=== PATIENT | male | born 1980 | race African-American/Black ===

== ENCOUNTER 2023-08-15 09:43 | Inpatient (IN) | payer OTHER ==
[2023-08-15 10:31] VITALS: BMI 34.4
[2023-08-15] MEDS ORDERED: AMMONIUM LACTATE 12% LOTION 225 GM BOTTLE TP PRN (15:40)
[2023-08-15] MEDS ORDERED: P-EPHED 60MG/TRIPROLIDI 2.5MG TABLET PO PRN (15:40)
[2023-08-15] MEDS ORDERED: BENZOCAINE/MENTHOL (CHLORASEPTIC ) LOZENGE MM PRN (15:40)
[2023-08-15] MEDS ORDERED: LOPERAMIDE HCL 2 MG CAPSULE PO PRN (15:40)
[2023-08-15] MEDS ORDERED: ACETAMINOPHEN 325 MG TABLET (FP) PO PRN (15:40)
[2023-08-15] MEDS ORDERED: COLLOIDAL OATMEAL 1 BAR EACH TP PRN (15:40)
[2023-08-15] MEDS ORDERED: BENZONATATE 200 MG CAPSULE PO PRN (15:40)
[2023-08-15] MEDS ORDERED: POLYETHYLENE GLYCOL (HEALTHYLAX) 3350 17 GM PACKET PO PRN (15:40)
[2023-08-15] MEDS ORDERED: guaiFENesin 600 MG TABLET.ER (FP) PO PRN (15:40)
[2023-08-15] MEDS ORDERED: MAGNESIUM HYDROX 2400MG/30ML ORAL SUSPENSION 30 ML CUP PO PRN (15:40)
[2023-08-15] MEDS ORDERED: MAG HYDROX/AL HYDROX/SIMETH 30 ML UNIT-DOSE CUP PO PRN (15:40)
[2023-08-15] MEDS ORDERED: NICOTINE POLACRILEX 2 MG GUM BUC PRN (15:42)
[2023-08-15] MEDS: MELATONIN 5 MG TABLETS PO SCH (21:31)
[2023-08-15] MEDS: THIAMINE HCL 100 MG TABLET (FP) PO SCH (21:31)
[2023-08-16 09:37] LABS: HEMATOCRIT 41.6 % (35.4-49); HEMOGLOBIN 13.5 GM/dL (11.7-16.9); MCH 27.6 pg (25.7-33.7); MCHC 32.5 g/dl (32.0-35.9); MEAN CELL VOLUME 84.7 fl (80-96); MEAN PLT VOLUME 10.5 fl (7.5-11.1); PLATELET COUNT 241 10^3/uL (134-434); RBC 4.91 M/mm3 (4.00-5.60); RDW 13.1 % (11.9-15.9); WHITE BLOOD COUNT 5.3 K/mm3 (4.0-10.0)
[2023-08-16 09:46] LABS: POTASSIUM 3.6 mmol/L (3.5-5.1)
[2023-08-16 09:52] LABS: ALBUMIN 3.4 g/dl (3.4-5.0); BLOOD UREA NITROGEN 5.7 mg/dL (7-18)
[2023-08-16 09:53] LABS: CALCIUM 8.4 mg/dL (8.5-10.1)
[2023-08-16 09:55] LABS: CREATININE 0.9 mg/dL (0.55-1.3)
[2023-08-16 09:56] LABS: BILIRUBIN,TOTAL 0.3 mg/dL (0.2-1); TOT PROT 6.7 g/dl (6.4-8.2)
[2023-08-16] MEDS: IBUPROFEN 600 MG TABLET (FP) PO PRN ×2 (10:15→15:33)
[2023-08-16] MEDS: PRENATAL VITAMINS W/ FOLIC ACID TABLET (FP) PO SCH (10:16)
[2023-08-16 11:51] LABS: EPI CELLS 13 /uL (0-25.1); HYALINE CASTS 0 /uL (0-3.1); PH,URINE 7.5 (5.0-8.0); URINE APPEARANCE CLEAR; URINE BACTERIA 441 /uL (0-1359); URINE BILIRUBIN NEGATIVE (NEGATIVE); URINE COLOR YELLOW; URINE GLUCOSE (UA) NEGATIVE (NEGATIVE); URINE KETONE NEGATIVE (NEGATIVE); URINE LEUK ESTERASE TRACE (NEGATIVE); URINE NITRITE NEGATIVE (NEGATIVE); URINE PROTEIN NEGATIVE (NEGATIVE); URINE RBC 2 /uL (0-23.9); URINE WBC 14 /uL (0-25.8)
[2023-08-16] MEDS ORDERED: TUBERCULIN PPD 5 TU/0.1ML VIAL ID ONE (12:00)
[2023-08-16] MEDS ORDERED: ACETAMINOPHEN 325 MG TABLET (FP) PO PRN (15:33)
[2023-08-16] MEDS: BACITRACIN 0.9 GM PACKET TP SCH (21:37)
[2023-08-16] MEDS: MELATONIN 5 MG TABLETS PO SCH (21:38)
[2023-08-16] MEDS: THIAMINE HCL 100 MG TABLET (FP) PO SCH (21:39)
[2023-08-17] MEDS: IBUPROFEN 600 MG TABLET (FP) PO PRN ×2 (09:53→16:02)
[2023-08-17] MEDS: PRENATAL VITAMINS W/ FOLIC ACID TABLET (FP) PO SCH (09:53)
[2023-08-17] MEDS: BACITRACIN 0.9 GM PACKET TP SCH ×2 (12:32→22:49)
[2023-08-17] MEDS: hydrOXYzine PAMOATE 25 MG CAPSULE (FP) PO PRN (16:02)
[2023-08-17] MEDS: MELATONIN 5 MG TABLETS PO SCH (22:49)
[2023-08-17] MEDS: THIAMINE HCL 100 MG TABLET (FP) PO SCH (22:49)
[2023-08-18] MEDS: BACITRACIN 0.9 GM PACKET TP SCH ×2 (09:44→21:35)
[2023-08-18] MEDS: PRENATAL VITAMINS W/ FOLIC ACID TABLET (FP) PO SCH (09:44)
[2023-08-18] MEDS: IBUPROFEN 600 MG TABLET (FP) PO PRN (09:47)
[2023-08-18] MEDS: MELATONIN 5 MG TABLETS PO SCH (21:36)
[2023-08-18] MEDS: THIAMINE HCL 100 MG TABLET (FP) PO SCH (21:36)
[2023-08-19] MEDS: IBUPROFEN 600 MG TABLET (FP) PO PRN (06:29)
[2023-08-19] MEDS: PRENATAL VITAMINS W/ FOLIC ACID TABLET (FP) PO SCH (09:55)
[2023-08-19] MEDS: BACITRACIN 0.9 GM PACKET TP SCH ×2 (09:55→21:04)
[2023-08-19] MEDS: THIAMINE HCL 100 MG TABLET (FP) PO SCH (21:04)
[2023-08-19] MEDS: MELATONIN 5 MG TABLETS PO SCH (21:04)
[2023-08-19] MEDS: IBUPROFEN 400 MG TABLET (FP) PO PRN (21:04)
[2023-08-20] MEDS: IBUPROFEN 600 MG TABLET (FP) PO PRN ×2 (08:34→21:44)
[2023-08-20] MEDS: PRENATAL VITAMINS W/ FOLIC ACID TABLET (FP) PO SCH (10:38)
[2023-08-20] MEDS: BACITRACIN 0.9 GM PACKET TP SCH ×2 (10:38→21:42)
[2023-08-20] MEDS ORDERED: amLODIPine BESYLATE 10 MG TABLET (FP) PO SCH (13:45)
[2023-08-20] MEDS: THIAMINE HCL 100 MG TABLET (FP) PO SCH (21:42)
[2023-08-20] MEDS: MELATONIN 5 MG TABLETS PO SCH (21:42)
[2023-08-21] MEDS: PRENATAL VITAMINS W/ FOLIC ACID TABLET (FP) PO SCH (09:52)
[2023-08-21] MEDS: IBUPROFEN 600 MG TABLET (FP) PO PRN ×2 (09:52→21:34)
[2023-08-21] MEDS: HYDROCHLOROTHIAZIDE 12.5 MG CAPSULE (FP) PO SCH (09:55)
[2023-08-21] MEDS: BACITRACIN 0.9 GM PACKET TP SCH ×2 (09:56→21:35)
[2023-08-21] MEDS: THIAMINE HCL 100 MG TABLET (FP) PO SCH (21:33)
[2023-08-21] MEDS: MELATONIN 5 MG TABLETS PO SCH (21:33)
[2023-08-22] MEDS: PRENATAL VITAMINS W/ FOLIC ACID TABLET (FP) PO SCH (09:57)
[2023-08-22] MEDS: HYDROCHLOROTHIAZIDE 12.5 MG CAPSULE (FP) PO SCH (09:58)
[2023-08-22] MEDS: BACITRACIN 0.9 GM PACKET TP SCH ×2 (09:59→22:11)
[2023-08-22] MEDS: IBUPROFEN 600 MG TABLET (FP) PO PRN ×2 (10:01→21:42)
[2023-08-22] MEDS: THIAMINE HCL 100 MG TABLET (FP) PO SCH (21:43)
[2023-08-22] MEDS: hydrOXYzine PAMOATE 25 MG CAPSULE (FP) PO PRN (21:43)
[2023-08-22] MEDS: MELATONIN 5 MG TABLETS PO SCH (21:43)
[2023-08-23] MEDS: BACITRACIN 0.9 GM PACKET TP SCH ×2 (09:46→21:57)
[2023-08-23] MEDS: PRENATAL VITAMINS W/ FOLIC ACID TABLET (FP) PO SCH (09:46)
[2023-08-23] MEDS: HYDROCHLOROTHIAZIDE 12.5 MG CAPSULE (FP) PO SCH (09:47)
[2023-08-23] MEDS: IBUPROFEN 600 MG TABLET (FP) PO PRN (09:49)
[2023-08-23] MEDS: MELATONIN 5 MG TABLETS PO SCH (21:58)
[2023-08-23] MEDS: THIAMINE HCL 100 MG TABLET (FP) PO SCH (21:58)
[2023-08-23] MEDS: IBUPROFEN 400 MG TABLET (FP) PO PRN (21:59)
[2023-08-24] MEDS: PRENATAL VITAMINS W/ FOLIC ACID TABLET (FP) PO SCH (09:47)
[2023-08-24] MEDS: HYDROCHLOROTHIAZIDE 12.5 MG CAPSULE (FP) PO SCH (09:48)
[2023-08-24] MEDS: IBUPROFEN 600 MG TABLET (FP) PO PRN (09:49)
[2023-08-24] MEDS: BACITRACIN 0.9 GM PACKET TP SCH ×2 (09:49→23:28)
[2023-08-24] MEDS ORDERED: HYDROCHLOROTHIAZIDE 25 MG TABLET (FP) PO SCH (14:00)
[2023-08-24] MEDS ORDERED: HYDROCHLOROTHIAZIDE 12.5 MG CAPSULE (FP) PO ONE (14:15)
[2023-08-24] MEDS: THIAMINE HCL 100 MG TABLET (FP) PO SCH (21:31)
[2023-08-24] MEDS: MELATONIN 5 MG TABLETS PO SCH (21:31)
[2023-08-24] MEDS: IBUPROFEN 400 MG TABLET (FP) PO PRN (21:32)
[2023-08-25] MEDS: PRENATAL VITAMINS W/ FOLIC ACID TABLET (FP) PO SCH (10:35)
[2023-08-25] MEDS: BACITRACIN 0.9 GM PACKET TP SCH ×2 (10:35→21:36)
[2023-08-25] MEDS: HYDROCHLOROTHIAZIDE 25 MG TABLET (FP) PO SCH (10:35)
[2023-08-25] MEDS: IBUPROFEN 600 MG TABLET (FP) PO PRN ×2 (10:36→21:27)
[2023-08-25] MEDS: MELATONIN 5 MG TABLETS PO SCH (21:26)
[2023-08-25] MEDS: THIAMINE HCL 100 MG TABLET (FP) PO SCH (21:26)
[2023-08-26] MEDS: BACITRACIN 0.9 GM PACKET TP SCH ×2 (10:09→21:46)
[2023-08-26] MEDS: PRENATAL VITAMINS W/ FOLIC ACID TABLET (FP) PO SCH (10:09)
[2023-08-26] MEDS: HYDROCHLOROTHIAZIDE 25 MG TABLET (FP) PO SCH (10:09)
[2023-08-26] MEDS: IBUPROFEN 600 MG TABLET (FP) PO PRN ×2 (10:11→21:44)
[2023-08-26] MEDS: THIAMINE HCL 100 MG TABLET (FP) PO SCH (21:44)
[2023-08-26] MEDS: MELATONIN 5 MG TABLETS PO SCH (21:46)
[2023-08-27] MEDS: BACITRACIN 0.9 GM PACKET TP SCH ×2 (09:05→21:44)
[2023-08-27] MEDS: hydrOXYzine PAMOATE 25 MG CAPSULE (FP) PO PRN ×2 (09:05→21:43)
[2023-08-27] MEDS: HYDROCHLOROTHIAZIDE 25 MG TABLET (FP) PO SCH (09:05)
[2023-08-27] MEDS: PRENATAL VITAMINS W/ FOLIC ACID TABLET (FP) PO SCH (09:05)
[2023-08-27] MEDS: IBUPROFEN 600 MG TABLET (FP) PO PRN (09:06)
[2023-08-27] MEDS: THIAMINE HCL 100 MG TABLET (FP) PO SCH (21:42)
[2023-08-27] MEDS: MELATONIN 5 MG TABLETS PO SCH (21:42)
[2023-08-28] MEDS: hydrOXYzine PAMOATE 25 MG CAPSULE (FP) PO PRN ×2 (06:30→21:43)
[2023-08-28] MEDS: PRENATAL VITAMINS W/ FOLIC ACID TABLET (FP) PO SCH (10:12)
[2023-08-28] MEDS: BACITRACIN 0.9 GM PACKET TP SCH ×2 (10:12→21:42)
[2023-08-28] MEDS: HYDROCHLOROTHIAZIDE 25 MG TABLET (FP) PO SCH (10:13)
[2023-08-28] MEDS: IBUPROFEN 600 MG TABLET (FP) PO PRN ×2 (10:14→21:43)
[2023-08-28] MEDS: THIAMINE HCL 100 MG TABLET (FP) PO SCH (21:43)
[2023-08-28] MEDS: MELATONIN 5 MG TABLETS PO SCH (21:43)
[2023-08-29] MEDS: HYDROCHLOROTHIAZIDE 25 MG TABLET (FP) PO SCH (10:12)
[2023-08-29] MEDS: PRENATAL VITAMINS W/ FOLIC ACID TABLET (FP) PO SCH (10:12)
[2023-08-29] MEDS: IBUPROFEN 600 MG TABLET (FP) PO PRN (10:12)
[2023-08-29] MEDS: BACITRACIN 0.9 GM PACKET TP SCH ×2 (10:12→21:48)
[2023-08-29] MEDS: hydrOXYzine PAMOATE 25 MG CAPSULE (FP) PO PRN (21:49)
[2023-08-29] MEDS: MELATONIN 5 MG TABLETS PO SCH (21:49)
[2023-08-29] MEDS: THIAMINE HCL 100 MG TABLET (FP) PO SCH (21:49)
[2023-08-29] MEDS: IBUPROFEN 400 MG TABLET (FP) PO PRN (21:50)
[2023-08-30] MEDS: BACITRACIN 0.9 GM PACKET TP SCH ×2 (09:51→21:22)
[2023-08-30] MEDS: IBUPROFEN 600 MG TABLET (FP) PO PRN ×2 (09:52→21:22)
[2023-08-30] MEDS: HYDROCHLOROTHIAZIDE 25 MG TABLET (FP) PO SCH (09:52)
[2023-08-30] MEDS: hydrOXYzine PAMOATE 25 MG CAPSULE (FP) PO PRN ×2 (09:52→21:22)
[2023-08-30] MEDS: PRENATAL VITAMINS W/ FOLIC ACID TABLET (FP) PO SCH (09:52)
[2023-08-30] MEDS: THIAMINE HCL 100 MG TABLET (FP) PO SCH (21:22)
[2023-08-30] MEDS: MELATONIN 5 MG TABLETS PO SCH (21:22)
[2023-08-31] MEDS: HYDROCHLOROTHIAZIDE 25 MG TABLET (FP) PO SCH (10:13)
[2023-08-31] MEDS: BACITRACIN 0.9 GM PACKET TP SCH ×2 (10:13→21:49)
[2023-08-31] MEDS: IBUPROFEN 600 MG TABLET (FP) PO PRN ×2 (10:13→21:51)
[2023-08-31] MEDS: PRENATAL VITAMINS W/ FOLIC ACID TABLET (FP) PO SCH (10:13)
[2023-08-31] MEDS: hydrOXYzine PAMOATE 25 MG CAPSULE (FP) PO PRN ×2 (10:15→21:51)
[2023-08-31] MEDS ORDERED: HYDROCHLOROTHIAZIDE 12.5 MG CAPSULE (FP) PO ONE (11:15)
[2023-08-31] MEDS: THIAMINE HCL 100 MG TABLET (FP) PO SCH (21:49)
[2023-08-31] MEDS: MELATONIN 5 MG TABLETS PO SCH (21:49)
[2023-09-01] MEDS: BACITRACIN 0.9 GM PACKET TP SCH ×2 (10:02→21:44)
[2023-09-01] MEDS: PRENATAL VITAMINS W/ FOLIC ACID TABLET (FP) PO SCH (10:02)
[2023-09-01] MEDS: HYDROCHLOROTHIAZIDE 12.5 MG CAPSULE (FP) PO SCH (10:03)
[2023-09-01] MEDS: MELATONIN 5 MG TABLETS PO SCH (21:41)
[2023-09-01] MEDS: IBUPROFEN 600 MG TABLET (FP) PO PRN (21:42)
[2023-09-01] MEDS: hydrOXYzine PAMOATE 25 MG CAPSULE (FP) PO PRN (21:42)
[2023-09-01] MEDS: THIAMINE HCL 100 MG TABLET (FP) PO SCH (21:44)
[2023-09-02] MEDS: IBUPROFEN 400 MG TABLET (FP) PO PRN (07:00)
[2023-09-02] MEDS: hydrOXYzine PAMOATE 25 MG CAPSULE (FP) PO PRN (07:00)
[2023-09-02] MEDS: BACITRACIN 0.9 GM PACKET TP SCH ×2 (09:41→21:37)
[2023-09-02] MEDS: HYDROCHLOROTHIAZIDE 12.5 MG CAPSULE (FP) PO SCH (09:41)
[2023-09-02] MEDS: PRENATAL VITAMINS W/ FOLIC ACID TABLET (FP) PO SCH (09:43)
[2023-09-02] MEDS: MELATONIN 5 MG TABLETS PO SCH (21:34)
[2023-09-02] MEDS: THIAMINE HCL 100 MG TABLET (FP) PO SCH (21:34)
[2023-09-03] MEDS: PRENATAL VITAMINS W/ FOLIC ACID TABLET (FP) PO SCH (10:24)
[2023-09-03] MEDS: BACITRACIN 0.9 GM PACKET TP SCH ×2 (10:24→21:40)
[2023-09-03] MEDS: HYDROCHLOROTHIAZIDE 12.5 MG CAPSULE (FP) PO SCH (10:24)
[2023-09-03] MEDS: IBUPROFEN 600 MG TABLET (FP) PO PRN (10:25)
[2023-09-03] MEDS: amLODIPine BESYLATE 5 MG TABLET (FP) PO SCH (13:25)
[2023-09-03 15:44] VITALS: RESP 18
[2023-09-03] MEDS: MELATONIN 5 MG TABLETS PO SCH (21:40)
[2023-09-03] MEDS: THIAMINE HCL 100 MG TABLET (FP) PO SCH (21:40)
[2023-09-03] MEDS: hydrOXYzine PAMOATE 25 MG CAPSULE (FP) PO PRN (21:41)
[2023-09-03] MEDS: IBUPROFEN 400 MG TABLET (FP) PO PRN (21:42)
[2023-09-04] MEDS: IBUPROFEN 600 MG TABLET (FP) PO PRN (09:12)
[2023-09-04] MEDS: amLODIPine BESYLATE 5 MG TABLET (FP) PO SCH (09:12)
[2023-09-04] MEDS: BACITRACIN 0.9 GM PACKET TP SCH ×2 (09:12→21:47)
[2023-09-04] MEDS: PRENATAL VITAMINS W/ FOLIC ACID TABLET (FP) PO SCH (09:13)
[2023-09-04] MEDS: HYDROCHLOROTHIAZIDE 12.5 MG CAPSULE (FP) PO SCH (09:13)
[2023-09-04] MEDS: MELATONIN 5 MG TABLETS PO SCH (21:41)
[2023-09-04] MEDS: IBUPROFEN 400 MG TABLET (FP) PO PRN (21:41)
[2023-09-04] MEDS: THIAMINE HCL 100 MG TABLET (FP) PO SCH (21:41)
[2023-09-05] MEDS: amLODIPine BESYLATE 5 MG TABLET (FP) PO SCH (09:34)
[2023-09-05] MEDS: BACITRACIN 0.9 GM PACKET TP SCH ×2 (09:34→21:33)
[2023-09-05] MEDS: HYDROCHLOROTHIAZIDE 12.5 MG CAPSULE (FP) PO SCH (09:35)
[2023-09-05] MEDS: PRENATAL VITAMINS W/ FOLIC ACID TABLET (FP) PO SCH (09:35)
[2023-09-05] MEDS: MELATONIN 5 MG TABLETS PO SCH (21:33)
[2023-09-05] MEDS: THIAMINE HCL 100 MG TABLET (FP) PO SCH (21:33)
[2023-09-05] MEDS: IBUPROFEN 400 MG TABLET (FP) PO PRN (21:34)
[2023-09-06] MEDS: IBUPROFEN 400 MG TABLET (FP) PO PRN ×2 (06:36→21:23)
[2023-09-06] MEDS: hydrOXYzine PAMOATE 25 MG CAPSULE (FP) PO PRN (06:36)
[2023-09-06] MEDS: HYDROCHLOROTHIAZIDE 12.5 MG CAPSULE (FP) PO SCH (09:40)
[2023-09-06] MEDS: amLODIPine BESYLATE 5 MG TABLET (FP) PO SCH (09:40)
[2023-09-06] MEDS: BACITRACIN 0.9 GM PACKET TP SCH ×2 (09:41→21:22)
[2023-09-06] MEDS: PRENATAL VITAMINS W/ FOLIC ACID TABLET (FP) PO SCH (09:45)
[2023-09-06] MEDS: MELATONIN 5 MG TABLETS PO SCH (21:22)
[2023-09-06] MEDS: THIAMINE HCL 100 MG TABLET (FP) PO SCH (21:22)
[2023-09-07] MEDS: amLODIPine BESYLATE 5 MG TABLET (FP) PO SCH (09:35)
[2023-09-07] MEDS: HYDROCHLOROTHIAZIDE 12.5 MG CAPSULE (FP) PO SCH (09:35)
[2023-09-07] MEDS: BACITRACIN 0.9 GM PACKET TP SCH ×2 (09:35→21:28)
[2023-09-07] MEDS: PRENATAL VITAMINS W/ FOLIC ACID TABLET (FP) PO SCH ×2 (09:35→10:12)
[2023-09-07] MEDS: MELATONIN 5 MG TABLETS PO SCH (21:28)
[2023-09-07] MEDS: IBUPROFEN 400 MG TABLET (FP) PO PRN (21:28)
[2023-09-07] MEDS: THIAMINE HCL 100 MG TABLET (FP) PO SCH (21:28)
[2023-09-08] MEDS: amLODIPine BESYLATE 5 MG TABLET (FP) PO SCH (09:50)
[2023-09-08] MEDS: HYDROCHLOROTHIAZIDE 12.5 MG CAPSULE (FP) PO SCH (09:50)
[2023-09-08] MEDS: PRENATAL VITAMINS W/ FOLIC ACID TABLET (FP) PO SCH (09:51)
[2023-09-08] MEDS: hydrOXYzine PAMOATE 25 MG CAPSULE (FP) PO PRN ×2 (09:53→21:53)
[2023-09-08] MEDS: BACITRACIN 0.9 GM PACKET TP SCH ×2 (09:54→21:53)
[2023-09-08] MEDS: THIAMINE HCL 100 MG TABLET (FP) PO SCH (21:53)
[2023-09-08] MEDS: MELATONIN 5 MG TABLETS PO SCH (21:53)
[2023-09-09] MEDS: amLODIPine BESYLATE 5 MG TABLET (FP) PO SCH (09:38)
[2023-09-09] MEDS: BACITRACIN 0.9 GM PACKET TP SCH ×2 (09:38→21:33)
[2023-09-09] MEDS: PRENATAL VITAMINS W/ FOLIC ACID TABLET (FP) PO SCH (09:39)
[2023-09-09] MEDS: HYDROCHLOROTHIAZIDE 12.5 MG CAPSULE (FP) PO SCH (09:39)
[2023-09-09] MEDS: hydrOXYzine PAMOATE 25 MG CAPSULE (FP) PO PRN ×3 (09:40→21:35)
[2023-09-09] MEDS: MELATONIN 5 MG TABLETS PO SCH (21:33)
[2023-09-09] MEDS: THIAMINE HCL 100 MG TABLET (FP) PO SCH (21:33)
[2023-09-09] MEDS: IBUPROFEN 600 MG TABLET (FP) PO PRN (21:35)
[2023-09-10 07:15] VITALS: TEMP 97.2
[2023-09-10] MEDS: amLODIPine BESYLATE 5 MG TABLET (FP) PO SCH (09:46)
[2023-09-10] MEDS: HYDROCHLOROTHIAZIDE 12.5 MG CAPSULE (FP) PO SCH (09:46)
[2023-09-10] MEDS: BACITRACIN 0.9 GM PACKET TP SCH (09:46)
[2023-09-10] MEDS: hydrOXYzine PAMOATE 25 MG CAPSULE (FP) PO PRN (09:47)
[2023-09-10] MEDS: PRENATAL VITAMINS W/ FOLIC ACID TABLET (FP) PO SCH (09:47)
[2023-09-10 11:27] VITALS: BP 142/84; PULSE 96
== END 2023-09-10 03:44 | disposition home or self-care (01) | DRG 772 ==
LOC: YASAS 09:43 → Y5N 15:24
PROVIDERS: ADMIT Allergy & Immunology; ATTEND Psychiatry & Neurology Pain Medicine
PROC: HZ42ZZZ Group Counseling for Substance Abuse Treatment, Cognitive-Behavioral (ICD-10-PCS; principal; 2023-08-15)
DX: F14.20 Cocaine dependence, uncomplicated (principal); F10.20 Alcohol dependence, uncomplicated; F17.210 Nicotine dependence, cigarettes, uncomplicated; I10 Essential (primary) hypertension; Z56.0 Unemployment, unspecified; Z59.00 Homelessness unspecified
CPT/HCPCS: 36415; 80053; 81003; 85027; 86780; 87635; 87811; 93005; 93010